=== PATIENT | female | born 1960 | race Caucasian/White ===

== ENCOUNTER 2016-07-09 21:44 | Emergency (ER) | payer BC ==
[~2016-07-09 21:44] MED LIST: ADRENOID CAPSU1 EACH PO; ALEVE220 M1 PO; ASPIRIN EC81 M1 PO; CALCIUM + D 6001 TA1 PO; ESCITALOPRAM OX20 MG PO; ESTRADIOL0.5 MG PO; EVISTA60 M1 PO; FISH OIL 1,0001 CAP PO; FOLBIC RF TABL1 EACH PO; LEXAPRO20 MG PO; MONTELUKAST SOD10 MG PO; MULTI VITAMIN1 EACH PO; NEXIUM PO; OS-CAL 500500 MG PO; SIMVASTATIN10 MG PO; VITAMIN C500 M5 PO; VITAMIN D1000 UNI2 PO; VITAMIN E1000 UNI2 PO; VITAMIN E400 UNI2 PO; ZOCOR10 MG PO; [UNRECOGNIZED DRUG - OTHER] PO
== END 2016-07-09 22:00 | disposition home or self-care (01) ==
LOC: CFTX 21:44
DX: J02.9 Acute pharyngitis, unspecified (principal); F32.9 Major depressive disorder, single episode, unspecified
CPT/HCPCS: 87651; 99283

== ENCOUNTER 2016-10-01 18:04 | Emergency (ER) | payer OTHER, BC ==
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
== END 2016-10-01 20:05 | disposition home or self-care (01) ==
LOC: CED 18:04 → CFTX 18:04
DX: S39.012A Strain of muscle, fascia and tendon of lower back, initial encounter (principal); S80.02XA Contusion of left knee, initial encounter; S70.02XA Contusion of left hip, initial encounter; F32.9 Major depressive disorder, single episode, unspecified; V49.50XA Passenger injured in collision with unspecified motor vehicles in traffic accident, initial encounter; Y92.488 Other paved roadways as the place of occurrence of the external cause
CPT/HCPCS: 71101; 72100; 73502; 73562; 99284